=== PATIENT | female | born 1970 | race Two or more races ===

== ENCOUNTER 2017-11-13 16:17 | Inpatient (IN) | payer MEDICAID ==
[~2017-11-13] VITALS: Ht 167.6 cm; Wt 94.8 kg
[2017-11-13 15:00] VITALS: BP 146/73
[2017-11-13] MEDS ORDERED: Z GUARD REMEDY PASTE 57 GM TUBE TOP PRN (16:30)
[2017-11-13] MEDS ORDERED: METF850T2 PO (17:09)
[2017-11-13] MEDS ORDERED: PARO10TA86 PO (17:09)
[2017-11-13] MEDS ORDERED: ATOR80TA PO (17:09)
[2017-11-13] MEDS ORDERED: ASPI-869 PO (17:09)
[2017-11-13] MEDS ORDERED: METO50TA16 PO (17:09)
[2017-11-13] MEDS ORDERED: INSU3INS6 SQ (17:09)
[2017-11-13] MEDS ORDERED: LOSA25TA13 PO (17:09)
[2017-11-13] MEDS ORDERED: LANC-346 MC (17:23)
--- NOTE | 2017-11-13 17:30 | NUR ---
Admitted this 47y/o female from [facility] with diagnosis of CVA. Patient is alert, verbally responsive, able to make needs known, not in any form of acute distress. She denies any pain or discomfort at this time. Skin is intact. NIHSS 1. Routine admission care provided. Call light placed within reach. Reminded to use call light for assistance with verbalized understanding. Assisted to her needs. Notified Dr. Perdomo regarding admission. Informed Lopez Preciado DNP informed of admission and and need for medication reconciliation. Also followed up with Dr. Preciado regarding Insulin lispro order for her blood sugar of 212 and per MD give 5 units insulin lispro. Order carried out. Endorsed accordingly to cage shift manager RN.
--- NOTE | 2017-11-13 19:45 | NUR ---
Received pt in bed, AAO x 4, with family member at bedside. Verbally responsive and able to make needs known. Denies pain or discomfort at this time. No acute distress noted. All safety measures and fall precautions maintained. Call light and all personal belongings within reach. Will continue to monitor.
[2017-11-13] MEDS ORDERED: INSULIN LISPRO 1000 UNITS/10 ML VIAL(HUMALOG) SQ ONE (20:00)
--- NOTE | 2017-11-13 20:35 | NUR ---
Dr. Preciado notified regarding med reconciliation. stated that he will complete it.
[2017-11-13 20:39] VITALS: BP 151/75
[2017-11-14] MEDS ORDERED: DEXTROSE 50% 50 ML DISP.SYRIN IV PRN (01:15)
--- NOTE | 2017-11-14 04:15 | NUR ---
Pt assisted to restroom using front wheel walker. When placed back into bed, pt complained of mild dizziness. No acute distress noted. Upon assessment, VS remained stable 145/69, HR 67, 96% RA and blood sugar of 224. Denies pain or discomfort. When asked about the dizziness, she stated "maybe it was from walking". Safety maintained. Call light within reach. Will continue to monitor. Addendum: 11/14/17 at 0418 by Anuel Tillman RN Will re-assess blood sugar levels in AM.
[2017-11-14] MEDS: BLOOD SUGAR DIAGNOSTIC 1 EACH STRIP VI SCH ×4 (06:34→20:47)
--- NOTE | 2017-11-14 07:26 | NUR ---
Pt slept comfortably throughout the shift, no further complaints of pain or discomfort. Verbally responsive and able to make needs known. No acute distress noted. Safety maintained. Kept clean and dry. Call light within reach. Will endorse to AM shift.
[2017-11-14] MEDS: INSULIN REGULAR, HUMAN 300 UNIT/3 ML VIAL SQ PRN ×4 (07:33→21:28)
--- NOTE | 2017-11-14 07:41 | NUR ---
Received pt in bed, AAO x 4, . Verbally responsive and able to make needs known. Denies pain or discomfort at this time. No acute distress noted. All safety measures and fall precautions maintained. Call light and all personal belongings within reach. Will continue to monitor.
[2017-11-14 08:00] LABS: BASOPHILS # (AUTO) 0.1 K/uL (0.0-8.0); BASOPHILS % (AUTO) 0.7 % (0.0-2.0); EOSINOPHILS # (AUTO) 0.3 K/uL (0.0-0.7); EOSINOPHILS % (AUTO) 3.8 % (0.0-7.0); HEMATOCRIT 34.2 % (31.2-41.9); HEMOGLOBIN 10.8 g/dL (10.9-14.3); LYMPHOCYTES # (AUTO) 1.7 K/uL (20.0-40.0); LYMPHOCYTES % (AUTO) 24.2 % (20.5-51.5); MEAN CORPUSCULAR HEMOGLOBIN 22.1 uug (24.7-32.8); MEAN CORPUSCULAR HGB CONC 32 g/dL (32.3-35.6); MEAN CORPUSCULAR VOLUME 69.8 fL (75.5-95.3); MONOCYTES # (AUTO) 0.5 K/uL (2.0-10.0); MONOCYTES % (AUTO) 6.8 % (0.0-11.0); NEUTROPHILS # (AUTO) 4.6 K/uL (1.8-8.9); NEUTROPHILS % (AUTO) 64.5 % (38.5-71.5); PLATELET COUNT (AUTO) 234 K/uL (179-408); WHITE BLOOD COUNT (AUTO) 7.2 K/uL (3.8-11.8)
[2017-11-14] MEDS: PAROXETINE HCL 10 MG TABLET PO SCH (08:07)
[2017-11-14] MEDS: METOPROLOL TARTRATE 50 MG TABLET PO SCH ×2 (08:08→17:01)
[2017-11-14] MEDS: LOSARTAN POTASSIUM 25 MG TABLET PO SCH (08:08)
[2017-11-14 08:25] LABS: CARBON DIOXIDE 26 mmol/L (21-32); CHLORIDE 101 mmol/L (98-107); CHOLESTEROL 105 mg/dL (<200); CREATININE 0.5 mg/dL (0.6-1.3); GLUCOSE 235 mg/dL (74-106); HDL CHOLESTEROL 42 mg/dL (40-60); MAGNESIUM 1.7 mg/dL (1.8-2.4); PHOSPHOROUS 3.6 mg/dL (2.5-4.9); POTASSIUM 3.7 mmol/L (3.5-5.1); TRIGLYCERIDES 87 MG/DL (30-150); UREA NITROGEN, BLOOD 9 mg/dL (7-18)
[2017-11-14] MEDS: METFORMIN HCL 850 MG TABLET PO SCH ×3 (08:46→17:01)
[2017-11-14] MEDS: ASPIRIN EC 325 MG TABLET.DR PO SCH (08:46)
[2017-11-14 09:06] LABS: BAND % (MANUAL) 2 % (0-10); EOSINOPHILS % (MANUAL) 4 % (0-8); LYMPHOCYTES % (MANUAL) 25 % (20-40); MONOCYTES % (MANUAL) 7 % (2-10); NEUTROPHILS % (MANUAL) 62 % (42-75)
[2017-11-14 10:48] VITALS: BP 136/70
--- NOTE | 2017-11-14 12:22 | NUR ---
PT IS RESTING IN HER BED ,LUNCH SERVED.NO C/O PAIN NOTED,CALL LIGHT WITH IN REACH.
[2017-11-14] MEDS ORDERED: MAGNESIUM OXIDE 400 MG TABLET PO ONE (15:15)
--- NOTE | 2017-11-14 19:30 | NUR ---
Patient sitting on bed, no s/s of distress. Verbalized absence of pain at this time. Son at bedside. Call light within reach. Encouraged to call for help whenever necessary. Will continue to monitor.
[2017-11-14] MEDS: ATORVASTATIN 40 MG TABLET PO SCH (20:47)
[2017-11-14 21:00] VITALS: BP 135/77
[2017-11-14] MEDS ORDERED: INSULIN GLARGINE,HUM 300 UNITS/3 ML CARTRIDGE SQ SCH ×2 (21:00)
[2017-11-14] MEDS ORDERED: INSULIN GLARGINE,HUM 300 UNITS/3 ML CARTRIDGE SQ ONE (22:04)
--- NOTE | 2017-11-15 05:58 | NUR ---
Patient asleep with no s/s of distress. Respirations even and unlabored. Slept well through the shift. Call light kept within reach. Due meds given. Needs attended. Snacks provided as requested. Kept comfortable. Frequent checks done. Endorsed accordingly.
[2017-11-15] MEDS: INSULIN REGULAR, HUMAN 300 UNIT/3 ML VIAL SQ PRN ×3 (06:37→15:46)
[2017-11-15] MEDS: BLOOD SUGAR DIAGNOSTIC 1 EACH STRIP VI SCH ×4 (06:39→20:24)
--- NOTE | 2017-11-15 07:05 | NUR ---
Correct dose for Humulin R HS (11/14/17) was administered but was documented under AC. Endorsed to day shift charge nurse.
[2017-11-15 07:51] VITALS: BP 133/82
[2017-11-15] MEDS: METFORMIN HCL 850 MG TABLET PO SCH ×3 (08:04→16:00)
[2017-11-15] MEDS: PAROXETINE HCL 10 MG TABLET PO SCH (08:05)
[2017-11-15] MEDS: ASPIRIN EC 325 MG TABLET.DR PO SCH (08:05)
[2017-11-15] MEDS: LOSARTAN POTASSIUM 25 MG TABLET PO SCH (08:05)
[2017-11-15] MEDS: METOPROLOL TARTRATE 50 MG TABLET PO SCH ×2 (08:05→16:02)
--- NOTE | 2017-11-15 11:00 | NUR ---
PT IS SITTING UP IN HER BED,FAMILY AT BED SIDE,NO NEW NEEDS NOTIFIED.CALL LIGHT WITH IN REACH.
--- NOTE | 2017-11-15 12:30 | NUR ---
PT IS RESTING IN HER BED ,LUNCH SERVED.NO C/O PAIN NOTED,CALL LIGHT WITH IN REACH.
[2017-11-15] MEDS: ONDANSETRON HCL 4 MG TABLET PO PRN (16:00)
--- NOTE | 2017-11-15 19:50 | NUR ---
Pt resting comfortably in bed. AAO x4. No acute distress noted. No c/o pain or discomfort. Safety measures maintained. Call light and personal belongings within reach. Continue to monitor.
[2017-11-15] MEDS: MECLIZINE HCL 12.5 MG TABLET PO PRN (20:23)
[2017-11-15] MEDS: ATORVASTATIN 40 MG TABLET PO SCH (20:24)
[2017-11-15] MEDS: INSULIN REGULAR, HUMAN 300 UNITS/3 ML VIAL SQ PRN (20:32)
[2017-11-15] MEDS: INSULIN GLARGINE,HUM 300 UNITS/3 ML CARTRIDGE SQ SCH (20:33)
[2017-11-15 21:42] VITALS: BP 114/67
--- NOTE | 2017-11-16 05:31 | NUR ---
Pt slept comfortably t/o the night. Meds and insulin coverage given per MD's order. Pt compliant. VSS. Assisted to the bathroom as needed. All needs attended to promptly. Will endorse to day shift RN. Continue to monitor.
[2017-11-16] MEDS: BLOOD SUGAR DIAGNOSTIC 1 EACH STRIP VI SCH ×4 (06:43→21:21)
[2017-11-16 07:10] VITALS: BP 123/71
[2017-11-16] MEDS: INSULIN REGULAR, HUMAN 300 UNIT/3 ML VIAL SQ PRN ×3 (08:09→16:55)
[2017-11-16] MEDS: ASPIRIN EC 325 MG TABLET.DR PO SCH (08:23)
[2017-11-16] MEDS: PAROXETINE HCL 10 MG TABLET PO SCH (08:23)
[2017-11-16] MEDS: MECLIZINE HCL 12.5 MG TABLET PO PRN ×2 (08:24→21:15)
[2017-11-16] MEDS: LOSARTAN POTASSIUM 25 MG TABLET PO SCH (08:24)
[2017-11-16] MEDS: METFORMIN HCL 850 MG TABLET PO SCH ×3 (08:24→16:58)
[2017-11-16] MEDS: METOPROLOL TARTRATE 50 MG TABLET PO SCH ×2 (08:24→17:00)
[2017-11-16] MEDS: ONDANSETRON HCL 4 MG TABLET PO PRN (15:36)
--- NOTE | 2017-11-16 19:45 | NUR ---
Pt resting comfortably in bed. AAO x4. No acute distress noted. No c/o pain. C/o slight dizziness. Will f/u with intervention. Safety measures maintained. Call light and personal belongings within reach. Will continue to monitor.
[2017-11-16 20:58] VITALS: BP 114/70
[2017-11-16] MEDS: ATORVASTATIN 40 MG TABLET PO SCH (21:11)
[2017-11-16] MEDS: INSULIN REGULAR, HUMAN 300 UNITS/3 ML VIAL SQ PRN (21:25)
[2017-11-16] MEDS: INSULIN GLARGINE,HUM 300 UNITS/3 ML CARTRIDGE SQ SCH (21:26)
--- NOTE | 2017-11-17 06:00 | NUR ---
Pt slept comfortably at night. VSS. Meds and insulin coverage given per MD's order. Assisted to the bathroom as needed. All needs attended to promptly. Will endorse to day shift RN. Continue to monitor.
[2017-11-17] MEDS: MECLIZINE HCL 12.5 MG TABLET PO PRN (06:48)
[2017-11-17] MEDS: BLOOD SUGAR DIAGNOSTIC 1 EACH STRIP VI SCH ×4 (06:48→21:17)
[2017-11-17 08:15] VITALS: BP 137/72
[2017-11-17] MEDS: METFORMIN HCL 850 MG TABLET PO SCH ×3 (08:37→16:59)
[2017-11-17] MEDS: PAROXETINE HCL 10 MG TABLET PO SCH (08:37)
[2017-11-17] MEDS: ASPIRIN EC 325 MG TABLET.DR PO SCH (08:38)
[2017-11-17] MEDS: METOPROLOL TARTRATE 50 MG TABLET PO SCH ×2 (08:38→17:00)
[2017-11-17] MEDS: LOSARTAN POTASSIUM 25 MG TABLET PO SCH (08:38)
[2017-11-17] MEDS: ONDANSETRON HCL 4 MG TABLET PO PRN (08:39)
--- NOTE | 2017-11-17 19:41 | NUR ---
Pt resting comfortably in bed. Son at bedside. No acute distress noted. No c/o pain or discomfort. Pt stated to be happy about the change of room as she is more comfortable. Safety measures maintained. Bed alarm on. Call light and personal belongings within reach. Continue to monitor.
[2017-11-17 20:08] VITALS: BP 129/71
[2017-11-17] MEDS: ATORVASTATIN 40 MG TABLET PO SCH (21:13)
[2017-11-17] MEDS: INSULIN REGULAR, HUMAN 300 UNITS/3 ML VIAL SQ PRN (21:19)
[2017-11-17] MEDS: INSULIN GLARGINE,HUM 300 UNITS/3 ML CARTRIDGE SQ SCH (21:20)
--- NOTE | 2017-11-18 05:42 | NUR ---
Pt slept comfortably t/o the night. Meds and insulin coverage given per MD's order. Urine sent to the lab as ordered. Assisted to the bathroom as needed. All needs attended to promptly. Will endorse to day shift RN. Continue to monitor.
[2017-11-18] MEDS: BLOOD SUGAR DIAGNOSTIC 1 EACH STRIP VI SCH ×4 (06:34→20:25)
[2017-11-18 07:49] LABS: *URINE HCG, QUAL NEGATIVE (NEGATIVE)
[2017-11-18] MEDS: ASPIRIN EC 325 MG TABLET.DR PO SCH (08:36)
[2017-11-18] MEDS: METFORMIN HCL 850 MG TABLET PO SCH ×3 (08:36→17:04)
[2017-11-18] MEDS: PAROXETINE HCL 10 MG TABLET PO SCH (08:36)
[2017-11-18] MEDS: LOSARTAN POTASSIUM 25 MG TABLET PO SCH (08:36)
[2017-11-18] MEDS: MECLIZINE HCL 12.5 MG TABLET PO PRN (08:36)
[2017-11-18] MEDS: METOPROLOL TARTRATE 50 MG TABLET PO SCH ×2 (08:37→17:08)
[2017-11-18] MEDS: METOCLOPRAMIDE HCL 5 MG TABLET PO SCH ×3 (08:40→17:04)
[2017-11-18 11:53] VITALS: BP 119/69
--- NOTE | 2017-11-18 19:30 | NUR ---
Received patient from day shift nurse. Report given at bedside. Patient is A/O x4, Macedonian/Korean speaking, with no signs of pain, sob, or acute distress. Family currently at bedside. Pertinent assessment completed. Vital signs WNL at start of shift. bed in low position, locked, x2 side rails up. Call light within reach of patient. Will continue to monitor patient through shift.
[2017-11-18 19:58] VITALS: BP 131/72
[2017-11-18] MEDS: ATORVASTATIN 40 MG TABLET PO SCH (20:25)
[2017-11-18] MEDS: INSULIN GLARGINE,HUM 300 UNITS/3 ML CARTRIDGE SQ SCH (20:29)
[2017-11-18] MEDS: INSULIN REGULAR, HUMAN 300 UNIT/3 ML VIAL SQ PRN (20:30)
--- NOTE | 2017-11-19 05:28 | NUR ---
Patient stable through shift. No acute distress noted. Slept well during the night. All needs attended to. All meds administered as ordered per MD. safety measures implemented. Call light within reach of patient. Will endorse to day shift nurse.
[2017-11-19] MEDS: BLOOD SUGAR DIAGNOSTIC 1 EACH STRIP VI SCH ×4 (06:33→20:13)
--- NOTE | 2017-11-19 06:33 | NUR ---
Blood sugar this AM at 188. Will endorse to day shift RN to administer insulin with breakfast tray.
[2017-11-19] MEDS: METOCLOPRAMIDE HCL 5 MG TABLET PO SCH ×3 (08:20→17:16)
[2017-11-19] MEDS: METFORMIN HCL 850 MG TABLET PO SCH ×3 (08:20→17:16)
[2017-11-19] MEDS: ASPIRIN EC 325 MG TABLET.DR PO SCH (08:21)
[2017-11-19] MEDS: PAROXETINE HCL 10 MG TABLET PO SCH (08:21)
[2017-11-19] MEDS: METOPROLOL TARTRATE 50 MG TABLET PO SCH ×2 (08:24→17:16)
[2017-11-19] MEDS: LOSARTAN POTASSIUM 25 MG TABLET PO SCH (08:25)
[2017-11-19 08:27] VITALS: BP 122/71
--- NOTE | 2017-11-19 19:30 | NUR ---
Received patient from day shift RN. Report given at bedside. Patient is a/ox4 with no current signs of pain, sob, or acute distress. Family currently at bedside. Pertinent assessment completed. Vital Signs WNL at start of shift. Bed in low position x2 side rails up. Call light within reach of pt. Encouraged pt to use call light when in need of assistance. will continue to monitor patient through shift.
[2017-11-19] MEDS: ATORVASTATIN 40 MG TABLET PO SCH (20:12)
[2017-11-19] MEDS: INSULIN GLARGINE,HUM 300 UNITS/3 ML CARTRIDGE SQ SCH (20:13)
[2017-11-19] MEDS: INSULIN REGULAR, HUMAN 300 UNITS/3 ML VIAL SQ PRN (20:14)
[2017-11-19 20:23] VITALS: BP 131/70
--- NOTE | 2017-11-20 06:03 | NUR ---
Patient stable through shift. No acute distress noted. Vital signs stable. All needs attended to. All meds administered as ordered per MD. Safety measures implemented. Call light within reach of patient. Will endorse to day shift RN.
[2017-11-20] MEDS: BLOOD SUGAR DIAGNOSTIC 1 EACH STRIP VI SCH ×2 (06:32→11:44)
--- NOTE | 2017-11-20 06:32 | NUR ---
Patient blood sugar is 177. Will endorse to day shift RN to cover patient with insulin with breakfast tray.
[2017-11-20 07:30] VITALS: BP 113/53
[2017-11-20] MEDS: INSULIN REGULAR, HUMAN 300 UNIT/3 ML VIAL SQ PRN ×2 (07:50→12:16)
[2017-11-20] MEDS: METOCLOPRAMIDE HCL 5 MG TABLET PO SCH ×2 (07:53→12:15)
[2017-11-20] MEDS: METFORMIN HCL 850 MG TABLET PO SCH ×2 (07:54→12:14)
[2017-11-20] MEDS: ASPIRIN EC 325 MG TABLET.DR PO SCH (08:18)
[2017-11-20] MEDS: PAROXETINE HCL 10 MG TABLET PO SCH (08:18)
[2017-11-20 08:19] VITALS: BP 113/53
[2017-11-20] MEDS: METOPROLOL TARTRATE 50 MG TABLET PO SCH (08:19)
[2017-11-20] MEDS: LOSARTAN POTASSIUM 25 MG TABLET PO SCH (08:19)
--- NOTE | 2017-11-20 09:53 | NUR ---
SBAR report received, board updated. Pt assessed to be alert and oriented x3. Pt assessed, denies pain at this time. Pt able to make her needs known. Bed in locked and lowest position. Pt complaint with all routine morning medications, insulin 3 units administered per sliding scale. All comfort and safety measures met. Call light and personal items placed within reach. Will continue to monitor.
--- NOTE | 2017-11-20 13:35 | NUR ---
INTERDISCIPLINARY TEAM CONFERENCE
--- NOTE | 2017-11-20 14:24 | NUR ---
Discharge order received. Discussed plan for discharge with outsole caser and Pt. Pt son agreed to transport Pt this afternoon. Discharge assessment and paperwork completed, reviewed with Pt, signed, and copies placed in chart. TMS medications approved via telephone order by . Pt has remained in stable condition this shift with no signs of distress. Most recent v/s include 113/53, 64, 18 RR, 97% RA, 97.5 temp. and 0/10 pain. Pt has finished working with all scheduled therapies for today. Pt refuses both vaccines. Pt is able to void independently with minimal assistance while utilizing walker for stability in ambulating. Pt has DME of FWW and 3 in 1 shower chair. Skin is intact with no initial pictures requiring update. Personal belongings accounted for and list signed. No at home medications to return. Will continue to monitor until son arrives to continuous pickling line pickler Pt.
--- NOTE | 2017-11-20 14:50 | NUR ---
Pt ID band removed. All discharge paperwork reviewed again, with son, and questions answered. All discharge paperwork copied and placed in chart. Pt safely escorted out of the hospital via wheelchair and transferred into private car with son. Will remove Pt from computer system shortly.
== END 2017-11-20 14:42 | disposition still patient (30) | DRG 58 ==
PROVIDERS: ADMIT Physical Medicine & Rehabilitation Pain Medicine; ATTEND Physical Medicine & Rehabilitation Pain Medicine
DX: G81.94 Hemiplegia, unspecified affecting left nondominant side (principal); E11.65 Type 2 diabetes mellitus with hyperglycemia; I10 Essential (primary) hypertension; E66.01 Morbid (severe) obesity due to excess calories; Z68.33 Body mass index [BMI] 33.0-33.9, adult; R27.0 Ataxia, unspecified; R42 Dizziness and giddiness; K30 Functional dyspepsia; R26.9 Unspecified abnormalities of gait and mobility; R63.0 Anorexia; E83.42 Hypomagnesemia; F41.8 Other specified anxiety disorders; H55.00 Unspecified nystagmus; Z80.3 Family history of malignant neoplasm of breast; Z80.41 Family history of malignant neoplasm of ovary; Z80.0 Family history of malignant neoplasm of digestive organs; Z83.3 Family history of diabetes mellitus; Z82.49 Family history of ischemic heart disease and other diseases of the circulatory system; Z90.49 Acquired absence of other specified parts of digestive tract; I69.398 Other sequelae of cerebral infarction
CPT/HCPCS: 36415; 70030-TC; 83735; 84100; 84703; 85025; 92507; 92523; 97110; 97112; 97116; 97165; 97530; 97535; J1815; J8597; Q0162